=== PATIENT | female | born 1965 | race Two or more races ===

== ENCOUNTER 2022-10-29 05:05 | Day surgery (SDC) | payer OTHER ==
[~2022-10-29] VITALS: Ht 157.5 cm; Wt 65.8 kg
[~2022-10-29 05:05] MED LIST: CRESTOR20 MG PO
[2022-10-29] MEDS ORDERED: PERCOCET 5-3251 EACH PO (09:00)
== END 2022-10-29 10:45 | disposition home or self-care (01) ==
LOC: CIR.AMB 05:05
PROVIDERS: ATTEND Surgery
DX: D35.1 Benign neoplasm of parathyroid gland (principal); E21.0 Primary hyperparathyroidism; Z20.822 Contact with and (suspected) exposure to COVID-19; E78.5 Hyperlipidemia, unspecified